=== PATIENT | male | born 1980 | race Caucasian/White ===

== ENCOUNTER 2021-01-14 07:56 | Emergency (ER) | payer OTHER ==
[~2021-01-14 07:56] MED LIST: CELEBREX200 MG PO; COLACE100 MG PO; IBUPROFEN600 MG PO; KEFLEX CAP 500500 MG PO; LO-DOSE ASPIRIN81 MG PO; NAPROSYN500 MG PO; NEURONTIN300 MG PO; OXYCODONE HCL5 MG PO; PEPCID20 MG PO; TYLENOL 500 MG500 MG PO; ZOFRAN4 MG PO
[2021-01-14] MEDS ORDERED: CYCLOBENZAPRINE10 MG PO (11:59)
[2021-01-14] MEDS ORDERED: TORADOL 10 MG T10 MG PO (11:59)
== END 2021-01-14 12:16 | disposition home or self-care (01) ==
LOC: ER1 07:56
DX: M54.2 Cervicalgia (principal)
CPT/HCPCS: 72125; 96372; 99283; J1885; J2360

== ENCOUNTER 2021-01-18 20:20 | Emergency (ER) | payer OTHER ==
[~2021-01-18 20:20] MED LIST changes: +CYCLOBENZAPRINE10 MG PO; +TORADOL 10 MG T10 MG PO
[2021-01-18] MEDS ORDERED: Voltaren Gel 1% TOP (21:02)
[2021-01-18] MEDS ORDERED: MEDROL DOSEPAK 24 MG PO (21:02)
== END 2021-01-18 21:30 | disposition home or self-care (01) ==
LOC: ER1 20:20
DX: M54.2 Cervicalgia (principal); Z87.891 Personal history of nicotine dependence
CPT/HCPCS: 96372; 99283; J1100; J1885

== ENCOUNTER → 2021-02-27 | Outpatient (CLI) | payer OTHER ==
[~2021-02-27] MED LIST changes: +MEDROL DOSEPAK 24 MG PO; +Voltaren Gel 1% TOP
== END ==
LOC: KOH-I 09:45
DX: M47.22 Other spondylosis with radiculopathy, cervical region (principal)
CPT/HCPCS: 72141

== ENCOUNTER 2021-05-16 17:11 | Emergency (ER) | payer OTHER ==
[2021-05-16 18:28] LABS: HEMOGLOBIN 16.7 gm/dl (14.0-17.5); RED BLOOD COUNT 5.57 M/UL (4.20-5.50); WHITE BLOOD COUNT 11.3 K/UL (4.5-11.0)
[2021-05-16 19:20] LABS: BUN/CREATININE RATIO 5 (0-10)
== END 2021-05-16 22:20 | disposition home or self-care (01) ==
LOC: ER1 17:11
PROVIDERS: Family Medicine
DX: R07.89 Other chest pain (principal)
CPT/HCPCS: 71045; 80053; 82550; 82553; 83735; 83874; 84484; 85025; 85379; 99285

== ENCOUNTER → 2021-06-08 | Outpatient (CLI) | payer OTHER | LOC: LAB 08:27 | DX: R07.9 Chest pain, unspecified (principal) | CPT/HCPCS: 36415; 80061 ==

== ENCOUNTER → 2021-06-22 | Outpatient (CLI) | payer OTHER | LOC: HEART 5 10:57 | DX: R07.9 Chest pain, unspecified (principal) ==

== ENCOUNTER → 2021-10-13 | Outpatient (CLI) | payer OTHER ==
[2021-10-13 09:39] LABS: HEMOGLOBIN 16.2 gm/dl (14.0-17.5); RED BLOOD COUNT 5.15 M/UL (4.20-5.50); WHITE BLOOD COUNT 7.6 K/UL (4.5-11.0)
[2021-10-13 10:02] LABS: BUN/CREATININE RATIO 10 (0-10)
== END ==
LOC: OPSV2 09:09 → EDSTATUS 09:30
PROVIDERS: Orthopaedic Surgery
DX: Z01.818 Encounter for other preprocedural examination (principal)
CPT/HCPCS: 36415; 71046; 80048; 81001; 85027; 87081; 93005

== ENCOUNTER → 2021-10-13 | Outpatient (CLI) | payer OTHER | LOC: KOH-I 08:00 | DX: M47.12 Other spondylosis with myelopathy, cervical region (principal); M50.30 Other cervical disc degeneration, unspecified cervical region; M48.02 Spinal stenosis, cervical region; M47.22 Other spondylosis with radiculopathy, cervical region; M50.01 Cervical disc disorder with myelopathy, high cervical region; M50.11 Cervical disc disorder with radiculopathy, high cervical region; M25.78 Osteophyte, vertebrae | CPT/HCPCS: 72125 ==

== ENCOUNTER → 2021-10-18 | Outpatient (CLI) | payer OTHER ==
[~2021-10-18] MED LIST changes: +NITROSTAT 0.40.4 MG SL
[2021-10-18 11:18] LABS: BUN/CREATININE RATIO 7 (0-10)
== END ==
LOC: LAB 10:39
PROVIDERS: Orthopaedic Surgery
DX: Z01.812 Encounter for preprocedural laboratory examination (principal)
CPT/HCPCS: 80048; 86850; 86900; 86901

== ENCOUNTER 2021-10-19 05:17 | Inpatient (IN) | payer OTHER ==
[~2021-10-19] VITALS: Ht 167.6 cm; Wt 71.7 kg
[~2021-10-19 05:17] MED LIST changes: -NITROSTAT 0.40.4 MG SL
[2021-10-19] MEDS ORDERED: NITROSTAT 0.40.4 MG SL (06:28)
[2021-10-20 05:30] LABS: HEMOGLOBIN 15.7 gm/dl (14.0-17.5); RED BLOOD COUNT 5.24 M/UL (4.20-5.50); WHITE BLOOD COUNT 14.8 K/UL (4.5-11.0)
[2021-10-20 05:54] LABS: BUN/CREATININE RATIO 15 (0-10)
== END 2021-10-20 14:19 | disposition home or self-care (01) | DRG 472 ==
LOC: OR 05:17 → CCU 05:18 → OR 07:30 → CCU 13:35 → OR 13:35 → CCU 10-20 14:19
PROVIDERS: ADMIT Orthopaedic Surgery
PROC: 4A11X4G Monitoring of Peripheral Nervous Electrical Activity, Intraoperative, External Approach (ICD-10-PCS; 2021-10-19)
PROC: 0RG20A0 Fusion of 2 or more Cervical Vertebral Joints with Interbody Fusion Device, Anterior Approach, Anterior Column, Open Approach (ICD-10-PCS; principal; 2021-10-19 07:30)
PROC: 0RB30ZZ Excision of Cervical Vertebral Disc, Open Approach (ICD-10-PCS; 2021-10-19 07:30)
DX: M48.02 Spinal stenosis, cervical region (principal); G95.89 Other specified diseases of spinal cord; M54.12 Radiculopathy, cervical region; Z98.890 Other specified postprocedural states; Z20.822 Contact with and (suspected) exposure to COVID-19
CPT/HCPCS: 72040; 76000; 80048; 85027; 97161; 97165; C1713; C1762; J0690; J1100; J2001; J2250; J2370; J2704; J3010; J3370; J7030; J7040; J7120

== ENCOUNTER → 2021-10-30 | Outpatient (CLI) | payer OTHER ==
[~2021-10-30] MED LIST changes: +NITROSTAT 0.40.4 MG SL
== END ==
LOC: EXRD 10:14
DX: E04.1 Nontoxic single thyroid nodule (principal)
CPT/HCPCS: 76536

== ENCOUNTER → 2021-11-11 | Outpatient (CLI) | payer OTHER | LOC: LAB 10:47 | DX: Z00.00 Encounter for general adult medical examination without abnormal findings (principal); R07.9 Chest pain, unspecified | CPT/HCPCS: 36415; 80061 ==